=== PATIENT | male | born 1995 | race African-American/Black ===

== ENCOUNTER 2024-01-06 20:05 | Inpatient (IN) | payer OTHER ==
[2024-01-06 20:30] VITALS: BMI 28.0
[2024-01-06] MEDS ORDERED: guaiFENesin 600 MG TABLET.ER (FP) PO PRN (21:03)
[2024-01-06] MEDS ORDERED: NALOXONE HCL 0.4 MG/ML VIAL IM PRN (21:03)
[2024-01-06] MEDS ORDERED: BENZONATATE 200 MG CAPSULE PO PRN (21:03)
[2024-01-06] MEDS ORDERED: NALOXONE HCL (KLOXXADO) 8 MG SPRAY NS PRN (21:03)
[2024-01-06] MEDS ORDERED: MAG HYDROX/AL HYDROX/SIMETH 30 ML UNIT-DOSE CUP PO PRN (21:03)
[2024-01-06] MEDS ORDERED: P-EPHED 60MG/TRIPROLIDI 2.5MG TABLET PO PRN (21:03)
[2024-01-06] MEDS ORDERED: MAGNESIUM HYDROX 2400MG/30ML ORAL SUSPENSION 30 ML CUP PO PRN (21:03)
[2024-01-06] MEDS ORDERED: LOPERAMIDE HCL 2 MG CAPSULE PO PRN (21:03)
[2024-01-06] MEDS ORDERED: ACETAMINOPHEN 325 MG TABLET (FP) PO PRN (21:03)
[2024-01-06] MEDS ORDERED: POLYETHYLENE GLYCOL (HEALTHYLAX) 3350 17 GM PACKET PO PRN (21:03)
[2024-01-06] MEDS ORDERED: BENZOCAINE/MENTHOL (CHLORASEPTIC ) LOZENGE MM PRN (21:03)
[2024-01-06] MEDS ORDERED: DICYCLOMINE HCL 10 MG CAPSULE PO PRN (21:03)
[2024-01-06] MEDS ORDERED: ONDANSETRON *ODT* 4 MG TABLET SL PRN (21:03)
[2024-01-06] MEDS ORDERED: BISMUTH SUBSALICYLATE 524 MG/30 ML PO PRN (21:03)
[2024-01-06] MEDS ORDERED: IBUPROFEN 400 MG TABLET (FP) PO PRN (21:03)
[2024-01-06] MEDS: THIAMINE 100 MG TABLET PO SCH (22:29)
[2024-01-06] MEDS: MELATONIN 5 MG TABLETS PO SCH (22:29)
[2024-01-07] MEDS: hydrOXYzine PAMOATE 25 MG CAPSULE (FP) PO PRN (05:15)
[2024-01-07] MEDS: METHOCARBAMOL 500 MG TABLET PO PRN (05:15)
[2024-01-07] MEDS: PRENATAL VITAMINS W/ FOLIC ACID TABLET (FP) PO SCH (09:54)
[2024-01-07] MEDS: methaDONE HCL 10 MG TABLET (FOR DETOX USE ONLY) PO ONE (09:59)
[2024-01-07] MEDS: IBUPROFEN 600 MG TABLET (FP) PO PRN (11:33)
[2024-01-07 11:37] LABS: HEMATOCRIT 35.1 % (35.4-49); MCH 28.4 pg (25.7-33.7); MCHC 34.1 g/dl (32.0-35.9); MEAN CELL VOLUME 83.1 fl (80-96); MEAN PLT VOLUME 7.2 fl (7.5-11.1); PLATELET COUNT 177 10^3/uL (134-434); RBC 4.22 M/mm3 (4.00-5.60); RDW 13.3 % (11.9-15.9); WHITE BLOOD COUNT 4.8 K/mm3 (4.0-10.0)
[2024-01-07 11:45] LABS: POTASSIUM 3.8 mmol/L (3.5-5.1)
[2024-01-07 11:52] LABS: ALBUMIN 3.5 g/dl (3.4-5.0); BLOOD UREA NITROGEN 6.8 mg/dL (7-18); CREATININE 0.9 mg/dL (0.55-1.3)
[2024-01-07 11:54] LABS: BILIRUBIN,TOTAL 0.5 mg/dL (0.2-1)
[2024-01-07] MEDS: hydrOXYzine PAMOATE 25 MG CAPSULE (FP) PO ONE (12:22)
[2024-01-07] MEDS: hydrOXYzine PAMOATE 25 MG CAPSULE (FP) PO SCH (13:25)
[2024-01-07] MEDS: NICOTINE POLACRILEX 2 MG GUM BUC PRN (14:26)
[2024-01-07] MEDS: SUVOREXANT 10 MG TABLET PO PRN (23:43)
[2024-01-08 10:00] VITALS: BP 127/79; PULSE 59; RESP 16; TEMP 98
[2024-01-08] MEDS ORDERED: methaDONE HCL 10 MG TABLET (FOR DETOX USE ONLY) PO ONE (10:00)
[2024-01-09] MEDS ORDERED: methaDONE HCL 10 MG TABLET (FOR DETOX USE ONLY) PO ONE (10:00)
== END 2024-01-08 12:37 | disposition left against medical advice (07) | DRG 770 ==
LOC: YASAS 20:05 → Y6N 21:35
PROVIDERS: ADMIT Allergy & Immunology; ATTEND Surgery
PROC: HZ2ZZZZ Detoxification Services for Substance Abuse Treatment (ICD-10-PCS; principal; 2024-01-06)
DX: F11.23 Opioid dependence with withdrawal (principal); F17.210 Nicotine dependence, cigarettes, uncomplicated; F19.282 Other psychoactive substance dependence with psychoactive substance-induced sleep disorder; Z21 Asymptomatic human immunodeficiency virus [HIV] infection status
CPT/HCPCS: 36415; 80053; 80305; 85027; 86780